=== PATIENT | female | born 1995 | race Caucasian/White ===

== ENCOUNTER 2017-10-19 18:16 | Emergency (ER) | payer BC ==
[~2017-10-19] VITALS: Ht 160 cm; Wt 59.0 kg
[2017-10-19 18:16] VITALS: BP 105/64
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
--- NOTE | 2017-10-19 19:06 | NUR ---
REPORT GIVEN TO MARINA HINOJOSA FOR [facility].
[2017-10-19] MEDS ORDERED: IBUPROFEN 600 MG TABLET PO ONE ×2 (19:14→19:30)
== END 2017-10-19 19:20 | disposition home or self-care (01) ==
LOC: ER 18:19 → EDBD 18:19 → ER 19:20
DX: S16.1XXA Strain of muscle, fascia and tendon at neck level, initial encounter (principal); R51 Headache; V43.52XA Car driver injured in collision with other type car in traffic accident, initial encounter; Y93.89 Activity, other specified; Y92.89 Other specified places as the place of occurrence of the external cause; Y99.8 Other external cause status
CPT/HCPCS: 99283; A4606; Z7610